=== PATIENT | male | born 1940 | race Caucasian/White ===

== ENCOUNTER → 2023-06-05 12:54 | Outpatient (REF) | payer MEDICARE, OTHER, SELFPAY | LOC: DHCBS MAIN 12:54 | PROVIDERS: ATTENDING PHYSICIAN Internal Medicine Cardiovascular Disease; FAMILY PHYSICIAN Internal Medicine | DX: Z95.2 Presence of prosthetic heart valve (principal) | CPT/HCPCS: 93306 ==

== ENCOUNTER → 2023-09-19 08:20 | Outpatient (REF) | payer MEDICARE, OTHER, SELFPAY | LOC: DHCBC/DCA 08:20 | PROVIDERS: ATTENDING PHYSICIAN Internal Medicine Cardiovascular Disease; FAMILY PHYSICIAN Internal Medicine | DX: I25.10 Atherosclerotic heart disease of native coronary artery without angina pectoris (principal) | CPT/HCPCS: 78452; 93017; A9500 ==

== ENCOUNTER → 2023-12-10 10:56 | Outpatient (REF) | payer MEDICARE, OTHER, SELFPAY ==
[2023-12-10 11:44] LABS: % Basophils 1.4 % (0-2); % Eosinophils 4.7 % (0-6); % Immature Granulocytes 0.3 % (0-0.5); % Lymphocytes 13.2 % (20.5-51.1); % Monocytes 9.7 % (1.7-9.3); % Neutrophils 70.7 % (42.2-75.2); Absolute Basophils 0.1 10^3/uL (0-0.2); Absolute Eosinophils 0.3 10^3/uL (0-0.7); Absolute Lymphocytes 0.9 10^3/uL (1.2-3.4); Absolute Monocytes 0.6 10^3/uL (0.1-0.6); Absolute Neutrophils 4.7 10^3/uL (1.4-6.5); Hematocrit 38.8 % (39.0-52.0); Hemoglobin 13.9 g/dL (13.0-18.0); Mean Corp Hgb Conc. 35.8 g/dL (33.0-37.0); Mean Corpuscular Hgb 34.2 pg (27.0-31.0); Mean Corpuscular Volume 95.6 fL (80.0-94.0); Nucleated Red Blood Cells % 0 % (-); Platelet Count 178 10^3/uL (130-400); Red Blood Cell Count 4.06 10^6/uL (4.70-6.10); Red Cell Dist. Width 12.9 % (11.5-14.5); White Blood Cell Count 6.6 10^3/uL (4.8-10.8)
[2023-12-10 12:51] LABS: ALT (SGPT) 33 U/L (0-50); AST (SGOT) 46 U/L (17-59); Albumin 4.1 g/dl (3.5-5.0); Alkaline Phosphatase 39 U/L (38-126); Blood Urea Nitrogen 21 mg/dl (9-20); Calcium 9.1 mg/dl (8.4-10.2); Carbon Dioxide 25 mmol/L (22-30); Chloride 97 mmol/L (98-107); Glucose 111 mg/dl (70-99); Potassium 4.8 mmol/L (3.5-5.1); Sodium 132 mmol/L (135-145); Total Bilirubin 0.7 mg/dl (0.2-1.3); Total Protein 6.2 g/dl (6.3-8.2); eGFR > 60.00
== END ==
LOC: REG 10:56
PROVIDERS: ATTENDING PHYSICIAN Internal Medicine Interventional Cardiology; FAMILY PHYSICIAN Internal Medicine; REFERRING PHYSICIAN Internal Medicine Cardiovascular Disease
DX: I25.10 Atherosclerotic heart disease of native coronary artery without angina pectoris (principal); I10 Essential (primary) hypertension; E78.5 Hyperlipidemia, unspecified
CPT/HCPCS: 36415; 80053; 85025

== ENCOUNTER → 2023-12-12 07:09 | Outpatient (REF) | payer MEDICARE, OTHER, SELFPAY | LOC: HWRCS 07:09 | PROVIDERS: ATTENDING PHYSICIAN Nurse Practitioner; FAMILY PHYSICIAN Internal Medicine | DX: R06.02 Shortness of breath (principal); R07.89 Other chest pain | CPT/HCPCS: 93306 ==

== ENCOUNTER 2023-12-14 06:13 | Day surgery (SDC) | payer MEDICARE, OTHER, SELFPAY ==
[2023-12-14] VITALS (10 sets, daily range): BP systolic 140–169; BP diastolic 72–84; BMI 24.3
[2023-12-14] MEDS: NSS 230 ML IV (07:06)
[2023-12-14] MEDS: LOW STRENGTH ASPIRIN 324 MG PO (07:13)
--- NOTE | 2023-12-14 09:39 | ITS.CL.CATH ---
[facility] - Catheterization
Cardiac Catheterization
Procedure Report:
RIGHT AND LEFT HEART CATHETERIZATION
Date of Procedure: December 14, 2023
Referring: Dr. Lyssa Dobson
PROCEDURES:
1. Coronary angiography
2. Selective saphenous vein graft and ALYSON angiography
3. Right heart catheterization
INDICATION: This is an 83-year-old gentleman who underwent coronary artery bypass grafting 5 vessels in June 2004 for treatment of significant triple-vessel coronary artery disease involving the left main, LAD, and circumflex. His bypass surgery
PENA-LAD, SVG-D2, SVG-OM, WILLIAM-first diagonal, and free radial graft to ramus intermedius. His last catheterization in October 2014 was performed prior to aortic valve replacement with a 29 mm bovine bioprosthetic valve. At the time of his
catheterization in 2014, the left main was found to be 100% occluded. The saphenous vein graft-OM and WILLIAM-first diagonal were noted to be 100% occluded
ACCESS: Right common femoral artery and right common femoral vein using ultrasound guidance
CORONARY ANGIOGRAPHY
Dominance: Right
LEFT MAIN: 100% occluded
LEFT ANTERIOR DESCENDING: The left main is 100% occluded. The LAD fills via a widely patent ALYSON graft which is anastomosed to the mid-distal vessel. The proximal LAD is 100% occluded and the PENA graft fills retrograde to the mid LAD just beyond
the second diagonal branch and antegrade to the apical vessel.
RAMUS: The left main is 100% occluded with the ramus intermedius filling via a widely patent free radial graft as described below
CIRCUMFLEX: The left main is 100% occluded.
RIGHT CORONARY ARTERY: The RCA is a dominant vessel with mild irregularities. The PDA is patent with mild irregularities.
GRAFT ANGIOGRAPHY:
1. PENA-LAD: The PENA graft to the mid-distal LAD is widely patent with anterograde and retrograde filling of the LAD. The LAD fills retrograde to the mid vessel just beyond the second diagonal branch and antegrade to the apex
2. SVG-D2: There is a degenerative saphenous vein anastomosed to a bifurcating diagonal branch which is patent and angiographically stable.
3. Free radial-Ramus: The free radial graft to a small caliber ramus intermedius is widely patent. The ramus intermedius is a very small caliber vessel that supplies a sizable vascular territory. The free radial graft is anastomosed in the
midportion of the ramus intermedius and there is antegrade and retrograde filling proximal and distal to the anastomosis
4. WILLIAM-D1: Known to be 100% occluded from catheterization 10/2014. Nonselective angiography demonstrates small and atretic WILLIAM graft
5. SVG-OM: Known to be 100% occluded from catheterization 10/2014
HEMODYNAMICS (mmHg) : Right heart catheterization was performed when the patient began asking about his significant shortness of breath at the conclusion of the diagnostic angiogram. He states that his shortness of breath has been worse
AO (s/d, m) : 132/64, 90
RA (m) : 9
RV (s/d) : 31/6, 9
PA (s/d,m) : 27/12, 17
PCWP (m) : 14
Estimated [place] Cardiac Output: 5.2 L/min and Cardiac Index: 2.7 L/min/M-2
Systemic vascular resistance: 15.6 Wood units or 1246 [id number]-puq-ae(-5)
Pulmonary vascular resistance: 0.6 Wood units or 46 vdpkb-lul-eu(-5)
RADIATION SUMMARY: Fluoro Time (min): 11.8, Dose (mGy): 650, DAP (Gy.cm2) : 54
Closure Device: 6 [place] Angio-Seal RFA
CONCLUSION
1. Stable coronary anatomy with nonobstructive coronary disease in the right coronary artery, patent PENA-LAD, SVG-D2, and free radial-ramus.
2. Compensated left ventricular filling pressures
3. Ventriculography was not performed, however, the mean aortic valve gradient across his 29 mm bovine bioprosthetic valve by echocardiogram from 12/12/2023 was 26 mmHg
RECOMMENDATIONS
1. Continued medical management
2. Isosorbide mononitrate was added to current medical regimen and attempt to improve anginal symptoms
Copy to: Dr. Lyssa Dobson
[2023-12-14] MEDS: NSS 345 IV (11:19)
== END 2023-12-14 12:50 | disposition home or self-care (01) ==
LOC: CATH 06:13
PROVIDERS: ATTENDING PHYSICIAN Internal Medicine Interventional Cardiology; FAMILY PHYSICIAN Internal Medicine; OTHER PHYSICIAN Internal Medicine Cardiovascular Disease
DX: I25.10 Atherosclerotic heart disease of native coronary artery without angina pectoris (principal); R07.89 Other chest pain; I25.82 Chronic total occlusion of coronary artery; Z95.1 Presence of aortocoronary bypass graft; Z95.3 Presence of xenogenic heart valve; I10 Essential (primary) hypertension; E78.5 Hyperlipidemia, unspecified; G47.33 Obstructive sleep apnea (adult) (pediatric); K21.9 Gastro-esophageal reflux disease without esophagitis; Z87.891 Personal history of nicotine dependence; Z79.82 Long term (current) use of aspirin
CPT/HCPCS: 93457; C1760; C1894; Q9967

== ENCOUNTER → 2024-01-24 08:00 | Outpatient (REF) | payer MEDICARE, OTHER, SELFPAY ==
[2024-01-24 10:59] LABS: HDL Cholesterol 60 mg/dl; LDL Cholesterol, Calculated 73 mg/dl; Total Cholesterol 143 mg/dl (50-199); Triglyceride 50 mg/dl (10-149); Very Low Density Lipoprotein 10 mg/dl (0-30)
[2024-01-24 11:25] LABS: TSH 3.54 uIU/ml (0.47-4.68)
== END ==
LOC: REG 08:00
PROVIDERS: ATTENDING PHYSICIAN Internal Medicine Cardiovascular Disease; FAMILY PHYSICIAN Internal Medicine
DX: I25.10 Atherosclerotic heart disease of native coronary artery without angina pectoris (principal); I10 Essential (primary) hypertension; I71.21 Aneurysm of the ascending aorta, without rupture; I65.22 Occlusion and stenosis of left carotid artery; G47.33 Obstructive sleep apnea (adult) (pediatric); Z95.2 Presence of prosthetic heart valve; M48.061 Spinal stenosis, lumbar region without neurogenic claudication; N43.3 Hydrocele, unspecified; Z00.00 Encounter for general adult medical examination without abnormal findings
CPT/HCPCS: 36415; 80061; 84443

== ENCOUNTER 2024-03-24 16:30 | Day surgery (SDC) | payer MEDICARE, OTHER, SELFPAY ==
[2024-03-24 15:50] VITALS: BP 150/105
--- NOTE | 2024-03-24 16:03 | ED.GENMED ---
History of Present Illness
General
Chief Complaint: Esophageal Problem
Time Seen by Provider: 03/24/24 15:55
History of Present Illness
History of Present Illness:
Patient is a 83-year-old man who recently had an EGD with dilation completed this morning presenting to the emergency department with food bolus impaction. Patient states that around 2 PM he ate chicken shortly after his procedure when he felt as
if he got stuck in the middle of his chest. Normally he drinks water which passes this however he drank water in the water immediately came back up. He is having some difficulty with his secretions but is able to keep some of it down. Patient's
states that his voice sounds more raspy. Patient otherwise has no complaints.
Past History
Past History
ED Past Medical History: CAD, HTN and Hypercholesterolemia
ED Past Surgical History: Cardiac (CABG)
Social History
Tobacco: Non-smoker
Alcohol: None
Living: with family
Family History
Family History: CAD; Negative Diabetes, Hypertension, Asthma or Cancer
Phy Exam
Physical Exam
Physical Exam:
GENERAL: Intermittently spitting up saliva, talking in complete sentences otherwise protecting his airway
HEENT: normocephalic, extraocular movements intact, moist oral mucosa
NECK: normal inspection
RESPIRATORY: no respiratory distress, clear to auscultation bilaterally
CARDIOVASCULAR: regular rate and rhythm
ABDOMEN/: soft, non-distended, non-tender to palpation, no rebound or guarding
EXTREMITIES: non-tender, no edema/swelling
NEUROLOGIC: awake and alert, moves all extremities
SKIN: warm
Course
Orders/Labs/Results
Orders:
Orders
03/24/24 16:01
Glucagon [GlucaGen] 1 mg IV NOW STA
Ondansetron Injectable [Zofran] 4 mg IV NOW STA
Vital Signs
Initial and Last Documented VS:
Initial Vital Signs
Temp Pulse Resp BP Pulse Ox
97.9 F 71 18 150/105 100
03/24/24 15:50 03/24/24 15:50 03/24/24 15:50 03/24/24 15:50 03/24/24 15:50
Last Documented Vital Signs
Temp Pulse Resp BP Pulse Ox
97.9 F 71 18 150/105 100
03/24/24 15:50 03/24/24 15:50 03/24/24 15:50 03/24/24 15:50 03/24/24 15:50
MDM/Problems Addressed
Differential Diagnosis Includes:
Patient is a 83-year-old male with with EGD with dilation completed earlier today presenting to the emergency department with food impaction. Vitals are unremarkable and exam does show man who is intermittently spitting up his saliva but otherwise
is protecting his airway. Concern for food impaction. History and exam not consistent with complication from EGD such as esophageal perforation. Will order Zofran and glucagon. Will discuss with GI for scope.
*Critical Care Note
Total Time (30-74mins, 75-104mins- exclusive of procedures): Not Applicable
Update Note
Update Note:
On reevaluation patient still feels a food bolus sensation. Unfortunately he is having more difficulty tolerating his secretions. Discussed with GI who will take patient up to lab.
ED Attending Note
-
Portions of this chart may have been created with voice recognition software.� Occasional wrong word or��sound alike� substitutions may have occurred due to the inherent limitations of voice recognition software.
Discharge Plan
Departure
Patient Disposition: GI LAB
Date of Disposition: 03/24/24
Time of Disposition: 16:43
Presentation/result/management discussed w/ accepting MD/DO: GI
Discharge Problem:
Food impaction of esophagus
Prescriptions:
No Action
finasteride 5 MG tablet
5 mg PO DAILY
atorvastatin 10 MG tablet
10 mg PO DAILY
cholecalciferol (vitamin D3) [Vitamin D3] 1,000 UNIT capsule
5,000 unit PO DAILY
coenzyme Q10 [Co Q-10] 100 MG capsule
100 mg PO DAILY
cyanocobalamin (vitamin B-12) 2,500 MCG lozenge
2,500 mcg PO DAILY
aspirin [Aspir-Low] 81 MG tablet,delayed release (DR/EC)
81 mg PO DAILY
multivitamin 1 EACH tablet
1 ea PO DAILY
acetaminophen 325 MG tablet
650 mg PO Q4HPRN PRN (Reason: pain)
famotidine 20 mg Tablet
20 mg PO DAILY
ferrous sulfate [Iron (ferrous sulfate)] 325 mg (65 mg iron) Tablet
325 mg PO DAILY
metoprolol succinate 25 mg Tablet Extended Release 24 Hr
25 mg PO DAILY
lisinopril 2.5 mg Tablet
2.5 mg PO DAILY
zinc 22 mg Tablet
22 mg PO DAILY
Relax and Sleep 65-65-65 mg Tablet
2 tab PO HS
melatonin 5 mg Tablet
5 mg PO HS PRN (Reason: sleep)
theanine 200 mg Capsule
200 mg PO DAILY
Quercetin Complex 500-250-33 mg Capsule
100 cap PO DAILY
isosorbide mononitrate 30 mg tablet extended release 24 hr
30 mg PO DAILY Qty: 90 3RF
Referrals:
UNKNOWN - PT DOES,NOT KNOW [Family Provider] -
Interventions
Interventions:
*Risk Screen - Suicide Last Done: 03/24/24 15:50
*General Assessment Last Done: 03/24/24 16:13
*Neglect/Abuse Screening Last Done: 03/24/24 15:50
ED- Fall Risk Assessment Last Done: 03/24/24 16:17
*ED COVID-19 Vaccine History Last Done: 03/24/24 16:13
CS-Bugvvv-Fkfbffqqlh Assessment Last Done: 03/24/24 16:15
ED-EENT Assessment Last Done: 03/24/24 16:15
Discharge Date and Time
Print Language: ICELANDIC
[2024-03-24] MEDS: ZOFRAN 4 MG IV (16:10)
[2024-03-24] MEDS: GlucaGen 1 MG IV ×2 (16:10→17:29)
[2024-03-24 17:19] VITALS: BP 147/67
--- NOTE | 2024-03-24 17:43 | CON.GI ---
Addendum entered and electronically signed by Nelly Bell DO 04/01/24 16:31:
Responding to query: Food impaction was NOT caused by endoscopy procedure.
Original Note:
Consultation
-
Date/Time Consultation Requested: 03/24/24
Date/Time Consultation Performed: 03/24/24
Requesting Provider: Dr. Velazquez
Performing Provider: Dr. Bell
Reason for Consultation: Food impaction
Medical History
Chief Complaint / HPI
Chief Complaint: Food impaction
History of Present Illness:
Mg is a 83-year-old male with past medical history of reflux esophagitis, CAD, history of adenomatous colon polyps, hypertension and, AVR presents to the ER with concern for food impaction. He had an endoscopy this morning due to ongoing
dysphagia, found to have a mild intrinsic stenosis dilated to 20 mm. He went home and ate a chicken wing, felt it get stuck and came to the ER for evaluation. Initially, he was tolerating secretions without issue however, observed to be spitting up
multiple times in the ER. He was given zofran and glucagonx1 without improvement. Of note, Patient had an episode of of possible food impaction 01/29/2024-spontaneously resolved after 30 minutes.
He underwent endoscopy in June 2021 which showed LA grade C esophagitis and 93 eosinophils per HPF. At that time he was advised to take pantoprazole 20 mg daily. He had subsequent endoscopy in December 2021 which showed improvement in his
esophagitis, and biopsies at that time did not show evidence of Griffith's esophagus. He reportedly had diarrhea on PPI therapy therefore switched to Pepcid 20 mg twice daily. His last colonoscopy was done in June 2021 as well showing a 6 mm
adenoma, diverticulosis in the sigmoid colon, and a normal tattoo site in the proximal TC.
01/03/2022 EGD, Dr. Zambrano: Z-line irregular, 38 cm from the incisors. Biopsied. Chronic gastritis. Biopsied. Normal duodenal bulb. Bx consistent with gastritis, negative for Griffith's.
--06/27/2021 colonoscopy, Dr. Zambrano: Diverticulosis in the sigmoid colon. A tattoo was seen in the proximal descending colon. The tattoo site appeared normal. One 6 mm polyp in the proximal transverse colon, removed with a cold snare. Resected and
retrieved. The examination was otherwise normal.
--06/09/2021 EGD, Dr. Zambrano: Z-line irregular, 37 cm from the incisors. LA Grade C reflux esophagitis with no bleeding. Biopsied. Mild Schatzki ring. Small hiatal hernia. Chronic gastritis. Biopsied. Normal duodenal bulb. Bx showing 93 eosinophils per
HPF.
--03/24/24 EGD, Dr. Hodgson: One benign-appearing intrinsic mild (non-circumferential scarring) stenosis found at the GE junction. Dilated with an 18-19-20mm balloon dilator to 20 mm. The dilation site was examined and showed complete resolution of
luminal narrowing. LA grade A esophagitis. Upper third of the esophagus was normal, biopsies taken. Normal stomach. Normal duodenum.
Past Medical History
Past Medical History: CAD, GERD, HTN, Hypercholesterolemia and Other (Colon polyps)
Past Surgical History: Cardiac and Orthopedic
Social History
Tobacco: Former Smoker
Alcohol: None
Family History
Family History: Reviewed & Not Pertinent
Allergies / Home Medications
Allergy/AdvReac Type Severity Reaction Status Date / Time
house dust Allergy Intermediate Itching Verified 03/24/24 15:53
Sulfa (Sulfonamide Allergy Intermediate Unknown Verified 03/24/24 15:53
Antibiotics)
enviromental Allergy Intermediate asthma Uncoded 03/24/24 15:53
hay fever Allergy Intermediate Itching Uncoded 03/24/24 15:53
�Medication �Instructions �Recorded
finasteride 5 mg tablet 5 mg PO DAILY 08/04/14
atorvastatin 10 mg tablet 10 mg PO DAILY 10/28/14
cholecalciferol (vitamin D3) 25 5,000 unit PO DAILY 10/29/14
mcg (1,000 unit) capsule (Vitamin
D3)
coenzyme Q10 100 mg capsule (Co 100 mg PO DAILY 10/29/14
Q-10)
cyanocobalamin (vitamin B-12) 2,500 mcg PO DAILY 10/29/14
2,500 mcg sublingual lozenge
aspirin 81 mg tablet,delayed 81 mg PO DAILY 08/15/16
release (Aspir-Low)
acetaminophen 325 mg tablet 650 mg PO Q4HPRN PRN pain 09/17/20
multivitamin 1 ea PO DAILY 09/17/20
famotidine 20 mg tablet 20 mg PO DAILY 12/14/23
ferrous sulfate 325 mg (65 mg 325 mg PO DAILY 12/14/23
iron) tablet (Iron (ferrous
sulfate))
isosorbide mononitrate 30 mg 30 mg PO DAILY #90 tabs 12/14/23
tablet,extended release 24 hr
lisinopril 2.5 mg tablet 2.5 mg PO DAILY 12/14/23
melatonin 5 mg tablet 5 mg PO HS PRN sleep 12/14/23
metoprolol succinate 25 mg 25 mg PO DAILY 12/14/23
tablet,extended release 24 hr
theanine 200 mg capsule 200 mg PO DAILY 12/14/23
valerian-passion 2 tab PO HS 12/14/23
wzkxg-oogevm-ahragt-hops-orange 65
mg-65 mg-65 mg tab (Relax and
Sleep)
vitamin C 500 mg-quercetin 250 100 cap PO DAILY 12/14/23
mg-bioflavonoids, citrus 33 mg
capsule (Quercetin Complex)
zinc 22 mg tablet 22 mg PO DAILY 12/14/23
Review of Systems
-
All other systems: A 12 pt ROS was Negative except as stated above in HPI
Vital Signs
Temp Pulse Resp BP Pulse Ox
97.9 F 70 18 147/67 98
03/24/24 15:50 03/24/24 17:19 03/24/24 15:50 03/24/24 17:19 03/24/24 17:19
Physical Exam
Exam
General: Other (Uncomfortable, spitting up secretions)
GI: Soft, Non Tender, Non Distended and Normal Bowel Sounds
Results
Diagnostic Image Results:
Prior GI Procedures:
EGD:
Colonoscopy:
Assessment / Plan
-
Mg is a 83-year-old male with past medical history of reflux esophagitis, CAD, history of adenomatous colon polyps, hypertension and, AVR presents to the ER with concern for food impaction. Of note, patient had an EGD this morning with
Gokul, found to have a benign intrinsic stenosis at GE junction and was dilated to 20mm. No improvement following 1 dose of glucagon.
A/P:
NPO for urgent EGD today
Risks and benefits of procedure discussed and patient agreeable to proceed.
Data Reviewed
-
Old Records: Reviewed
-
-
Thank you for consultation and allowing me to participate in the patient's care. Please call the supervisor [facility] [employer] GI physician during the after hours with any questions or concerns.
--- NOTE | 2024-03-24 19:37 | W.PN.UPDATE ---
Update Note
Progress Note Update
s/p EGD for food impaction. Copious amounts of food throughout the entire esophagus and airway. Due to concern for aspiration, recommend leaving intubated overnight and admitting to ICU for monitoring. Additionally, 2 esophageal ulcers found at the
GE junction, one ulcer with NBVB injected with epi, bicap and hemostatic clip placed, smaller more superficial vessel just inferior to this with pigmented spot, treated with bicap.
Plan:
Admit to ICU overnight, keep NPO
Empiric coverage for aspiration pneumonia
CXR
PPI gtt
Discussed with Tere.
== END 2024-03-24 19:50 | disposition home or self-care (01) ==
LOC: SDS 16:30
PROVIDERS: ATTENDING PHYSICIAN Internal Medicine Gastroenterology; EMERGENCY PHYSICIAN Student in an Organized Health Care Education/Training Program; FAMILY PHYSICIAN Internal Medicine
DX: K22.2 Esophageal obstruction (principal); K21.00 Gastro-esophageal reflux disease with esophagitis, without bleeding; R13.10 Dysphagia, unspecified
CPT/HCPCS: 43249; 43239; 88305; J1610

== ENCOUNTER 2024-03-24 19:23 | Inpatient (IN) | payer MEDICARE, OTHER, SELFPAY ==
[2024-03-24] VITALS (7 sets, daily range): BP systolic 99–146; BP diastolic 56–88
--- NOTE | 2024-03-24 20:00 | PTCARENOTE ---
Patient received from GI lab, intubated. Commands followed, became restless and agitated. Sedated with fentanyl and propofol. NSR on monitor, afebrile, blood pressure as documented. palpable pulses, no edema. #8 ETT at 25 cm at the lip, vent
settings on AC 14 TV 500 FIO2 50% Peep 5, lungs coarse, pulse ox 97%. [place] sump placed in left nare. Abdomen soft ith hypoactive bowel sounds. Thermister amanda placed. Skin intact. #20 g in RAC flushed and patent. CHG bath given.
[2024-03-24] MEDS: SUBLIMAZE 50 MCG IV ×2 (20:04→21:12)
[2024-03-24] MEDS: SUBLIMAZE 100 IV (20:07)
[2024-03-24] MEDS: PROTONIX 100 IV (20:16)
[2024-03-24 21:05] LABS: Venous Blood Gas B.E. -2.1 mmol/L (-4 to +4); Venous Blood Gas HCO3 24.7 mmol/L (22-27); Venous Blood Gas O2 Sat % 95.8 %; Venous Blood Gas pCO2 49 mmHg (35-48); Venous Blood Gas pH 7.31 (7.32-7.43); Venous Blood Gas pO2 78 mmHg (30-50)
[2024-03-24 21:22] LABS: Blood Urea Nitrogen 22 mg/dl (9-20); Calcium 8.4 mg/dl (8.4-10.2); Carbon Dioxide 24 mmol/L (22-30); Chloride 100 mmol/L (98-107); Glucose 113 mg/dl (70-99); Potassium 4.3 mmol/L (3.5-5.1); Sodium 131 mmol/L (135-145); Triglycerides 72 mg/dl (10-149); eGFR > 60.00
[2024-03-24] MEDS: ZOSYN 100 IV (21:22)
--- NOTE | 2024-03-24 23:50 | HPS.HSE ---
Family Physician
-
Family Physician: Fabian Hobbs
Chief Complaint
-
Choking
History of Present Illness
Patient is an 83y M with PMH significant for ASCVD, esophageal stricture and GERD who presents to ED complaining of coughing / choking since this afternoon. Patient has known esophageal stricture and underwent EGD this AM here at . He had
distal esophageal dilation at that time to 20mm. Patient felt well after the procedure and was discharged to home. states that he was eating lunch around 2 PM when he began to experience difficulty swallowing and started to choke. He
presented to the ED for evaluation where his symptoms continued to increase. Patient was taken to the GI lab where he underwent repeat EGD with removal of a large amount of food from the entire esophagus - up to and including the vocal cords and
pharynx. Following this procedure, it was decided to keep patient intubated overnight given concern for possible recurrent aspiration, airway compromise, etc.
Patient was seen and examined in the ICU.
He was on the ventilator with sedation running, but was able to follow commands appropriately.
Case discussed with his via phone.
Medical History
Past Medical History
Past Medical History: Reports Other
Additional Past Medical History:
ASCVD
Esophageal Stricture / GERD
Anemia of Chronic Disease
OBDULIA
BPH
DDD
Past Surgical History: Reports Other
Additional Past Surgical History:
CABG x 5
BioAVR
Left Carotid Stent
Rotator Cuff
Blepharoplasty
Cataracts
Left Inguinal Hernia
Right Knee Arthroscopy
Social History
Tobacco: Former Smoker (Quit > 10 years ago.)
Alcohol: Occasional
Drug: None
Personal:
Living: With Family
Family History
Family History: Not pertinent
Allergies / Home Medications
Allergies reflects when Allergies were last updated in [facility].
Home Medications with original date entered in [facility]
Allergy/Medication List:
unable to confirm current medication list.
If medication reconciliation has not been performed, why?: Medication List N/A
Review of Systems
-
Unable to obtain full review of systems at this time due to: Patient Intubation
Physical Exam
Vital Signs
Vital Signs
Temp Pulse Resp BP Pulse Ox
98.1 F 72 14 138/74 98
03/24/24 23:48 03/24/24 21:30 03/24/24 21:30 03/24/24 21:00 03/24/24 23:09
Physical Exam
General: Other (83y M sedated / intubated. Moving all extremities spontaneously. Comprehends and follows commands appropriately.)
HEENT: Moist mucous membranes
Respiratory: Clear; No Wheezes, Rales or Rhonchi
Cardiac: S1/S2 and Regular Rhythm; No Murmur
GI: Soft, Non Tender, Non Distended and Normal Bowel Sounds
Musculoskeletal: No Clubbing, No Cyanosis and No Edema
Neuro: Sedated
Laboratory Results
-
03/24/24 20:55
Impression/Plan
-
A/P: Patient is an 83y M with PMH significant fro esophageal stricture and GERD who presents to ED complaining of choking.
Food Impaction
Lower Esophageal Stricture
GERD
- Admit to ICU for further evaluation and treatment.
- Maintain ETT / sedation overnight for airway protection.
- Aspiration precautions.
- Cover with abx for now given likely / suspected aspiration.
- Pulm / CC evaluation and probable extubation in the AM.
- Appreciate GI recommendations.
Esophageal Ulcer
- Two small ulcers seen in the esophagus on today's EGD - one with some bleeding.
- Treated with cautery and single clip for hemostasis.
- Continue PPI infusion per GI.
- Follow H&H and monitor for any evident blood loss, etc.
ASCVD
- Stable. No recent issues. s/p remote CABG x 5
- Continue ASA uninterrupted.
- Hold other CV medications until extubated / able to take POs.
BPH
- Cornelius in place at present.
- Resume finasteride when able to take POs.
- TOV / Cornelius removal prior to discharge.
DVT Prophylaxis: SCDs
Code Status: Full
Will need formal med rec in the AM as patient / unable to confirm medications at this time.
[2024-03-25] VITALS (27 sets, daily range): BP systolic 91–146; BP diastolic 54–76; BMI 24.2
--- NOTE | 2024-03-25 00:21 | PTCARENOTE ---
Patient reassessed, calm, no changes in assessment
[2024-03-25] MEDS: DIPRIVAN 100 IV ×2 (01:13→08:02)
--- NOTE | 2024-03-25 04:00 | PTCARENOTE ---
Patient reassessed, no changes in assessment
[2024-03-25] MEDS: ZOSYN 100 IV ×4 (04:13→22:38)
[2024-03-25] MEDS: PROTONIX 100 IV (04:23)
[2024-03-25 04:28] LABS: Hematocrit 40.8 % (39.0-52.0); Hemoglobin 14.1 g/dL (13.0-18.0); Mean Corp Hgb Conc. 34.6 g/dL (33.0-37.0); Mean Corpuscular Hgb 34.9 pg (27.0-31.0); Mean Platelet Volume 10.1 fL (7.4-10.4); Platelet Count 137 10^3/uL (130-400); Red Blood Cell Count 4.04 10^6/uL (4.70-6.10); Red Cell Dist. Width 13.2 % (11.5-14.5); White Blood Cell Count 13.8 10^3/uL (4.8-10.8)
[2024-03-25 04:53] LABS: Blood Urea Nitrogen 20 mg/dl (9-20); Calcium 8.3 mg/dl (8.4-10.2); Carbon Dioxide 25 mmol/L (22-30); Chloride 100 mmol/L (98-107); Glucose 138 mg/dl (70-99); Potassium 4.5 mmol/L (3.5-5.1); Sodium 134 mmol/L (135-145); eGFR > 60.00
--- NOTE | 2024-03-25 07:39 | W.PN.ANS.POP ---
Anesthesia Post Operative
- Anesthesia Post Op Note
Vital Signs Stable-See Nursing Note: Yes
Airway Patent: Yes
Adequate Pain Control: Yes
Change in Mental Status: No
Current Postoperative Nausea & Vomiting: No
Anesthesia Complications: No
General Anesthetic Recall: No
Unplanned Admission: No
Post Op Hydration Adequate: Yes
--- NOTE | 2024-03-25 07:43 | CON.INTV ---
Consultation
Consultation Request
Date/Time Consultation Requested: 03/25/2024-7:30 AM
Date/Time Consultation Performed: 03/25/2024-7:30 AM
Requesting Provider: Hospitalist
Performing Provider: Dr. Bridges
Reason for Consultation: Ventilator management/critical care management
Medical History
-
Chief Complaint: Abdominal pain
History of Present Illness:
83-year-old male with a history of CAD, GERD, BPH, OBDULIA, and esophageal strictures who underwent EGD 03/25/2019 5 AM with distal esophageal dilation who felt well and was discharged home and returned with complaints of difficulty swallowing and
choking noted to have emergent repeat endoscopy found to have large amount of food in the entire esophagus, aspiration suspected and patient was kept intubated postprocedure-automotive services manager consulted for ventilator/aspiration/critical care management
03/25/2024. Patient is on the ventilator, sedated and review of systems was unobtainable, no significant secretions from endotracheal tube, remains hemodynamically stable.
Past Medical History
Past Medical History: None (CAD/CABG x 5/AVR-bioprosthetic. Anemia of chronic disease. GERD. BPH. DDD. Esophageal stricture status post dilations. Rotator cuff. Left carotid stent. Blepharoplasty. Cataract. Left inguinal hernia. Right
knee arthroplasty.)
Social History
Tobacco: Former Smoker (Quit over 10 years ago)
Alcohol: Occasional
Drug: None
Personal:
Living: With Family
Occupational Exposures: No known asbestos exposure
Environmental Exposures: No known tuberculosis exposure
Family History
Family History: Reviewed & Not Pertinent
Allergies / Home Medications
Allergies
Allergy/AdvReac Type Severity Reaction Status Date / Time
house dust Allergy Itching/nasal Verified 03/24/24 20:01
congestion
pollen extracts Allergy HAYFEVER/ITCHING/NASAL Verified 03/24/24 20:01
CONGESTION
Sulfa (Sulfonamide Allergy childhood-does Verified 03/24/24 20:01
Antibiotics) not know
reaction
enviromental Allergy asthma Uncoded 03/24/24 20:01
Home Medications
�Medication �Instructions �Recorded �Confirmed �Last Taken �Type
finasteride 5 mg tablet 5 mg PO DAILY 08/04/14 12/14/23 12/13/23 07:00 History
atorvastatin 10 mg tablet 10 mg PO DAILY 10/28/14 12/14/23 12/13/23 07:00 History
cholecalciferol (vitamin D3) 25 5,000 unit PO DAILY 10/29/14 12/14/23 12/13/23 07:00 History
mcg (1,000 unit) capsule (Vitamin
D3)
coenzyme Q10 100 mg capsule (Co 100 mg PO DAILY 10/29/14 12/14/23 12/13/23 07:00 History
Q-10)
cyanocobalamin (vitamin B-12) 2,500 mcg PO DAILY 10/29/14 12/14/23 12/14/23 07:00 History
2,500 mcg sublingual lozenge
aspirin 81 mg tablet,delayed 81 mg PO DAILY 08/15/16 12/14/23 12/11/23 07:00 History
release (Aspir-Low)
acetaminophen 325 mg tablet 650 mg PO Q4HPRN PRN pain 09/17/20 12/14/23 09/18/20 History
multivitamin 1 ea PO DAILY 09/17/20 12/14/23 12/13/23 07:00 History
famotidine 20 mg tablet 20 mg PO DAILY 12/14/23 12/14/23 12/13/23 07:00 History
ferrous sulfate 325 mg (65 mg 325 mg PO DAILY 12/14/23 12/14/23 12/13/23 07:00 History
iron) tablet (Iron (ferrous
sulfate))
isosorbide mononitrate 30 mg 30 mg PO DAILY #90 tabs 12/14/23 Unknown Rx
tablet,extended release 24 hr
lisinopril 2.5 mg tablet 2.5 mg PO DAILY 12/14/23 12/14/23 12/13/23 07:00 History
melatonin 5 mg tablet 5 mg PO HS PRN sleep 12/14/23 12/14/23 12/13/23 20:30 History
metoprolol succinate 25 mg 25 mg PO DAILY 12/14/23 12/14/23 12/13/23 07:00 History
tablet,extended release 24 hr
theanine 200 mg capsule 200 mg PO DAILY 12/14/23 12/14/23 12/13/23 07:00 History
valerian-passion 2 tab PO HS 12/14/23 12/14/23 12/13/23 20:30 History
oqnkl-udumqc-shzadc-hops-orange 65
mg-65 mg-65 mg tab (Relax and
Sleep)
vitamin C 500 mg-quercetin 250 100 cap PO DAILY 12/14/23 12/14/23 12/13/23 07:00 History
mg-bioflavonoids, citrus 33 mg
capsule (Quercetin Complex)
zinc 22 mg tablet 22 mg PO DAILY 12/14/23 12/14/23 12/13/23 07:00 History
Review of Systems
-
Unable to Obtain full review of systems at this time due to: Other (Per HPI)
Vitals / Labs / Diagnostic Testing
Vital Signs
Temp Pulse Resp BP Pulse Ox
98.2 F 55 14 114/68 99
03/25/24 04:11 03/25/24 07:00 03/25/24 07:00 03/25/24 07:00 03/25/24 04:00
Lab Data
03/25/24 04:20
03/25/24 04:20
Diagnostic Testing:
Physical Exam
-
Exam:
Well-nourished and well-developed in no apparent distress
HEENT-atraumatic, normocephalic, oral tracheal intubation
Neck-supple, no JVD, no bruit
Heart-regular rate and rhythm-no murmurs, rubs or gallops
Chest-clear to auscultation, few rhonchi
Back-no tenderness
Abdomen-soft, nontender, nondistended, no hepatosplenomegaly
Extremities-no cyanosis, clubbing, edema and good peripheral pulses
Integument-intact, no rashes, lesions or ecchymosis
Neurologically sedated on ventilator, moving extremities, grossly nonfocal
Assessment
-
83-year-old male with a history of CAD, GERD, BPH, OBDULIA, and esophageal strictures who underwent EGD 03/25/2019 5 AM with distal esophageal dilation who felt well and was discharged home and returned with complaints of difficulty swallowing and
choking noted to have emergent repeat endoscopy found to have large amount of food in the entire esophagus, aspiration suspected and patient was kept intubated postprocedure-automotive services manager consulted for ventilator/aspiration/critical care management
03/25/2024.
Ventilator dependence post emergent endoscopy
Intubated 03/24/2024
Extubated 03/25/2024
Food impaction
Lower esophageal stricture
Aspiration pneumonitis suspected
GERD
GI cvqyb-apcbo-faeuoebfhl ulcer status post cautery 03/24/2024
Esophageal ulcer-2 small ulcers seen on the esophagus on repeat endoscopy-1 with bleeding
Leukocytosis
Mild hyponatremia
Hyperglycemia
Conditions present prior to admission:
CAD/CABG x 5/AVR-bioprosthetic.
Anemia of chronic disease.
GERD.
BPH.
DDD.
Esophageal stricture status post dilations.
Pulmonary nodule-5 mm right lower lobe-stable 03/2018 through 07/2021
Former smoker
Rotator cuff. Left carotid stent. Blepharoplasty. Cataract. Left inguinal hernia. Right knee arthroplasty.
Plan
Events and both endoscopy reports were reviewed
Ventilator settings reviewed
Attempt spontaneous breathing trial
Follow ABG
Hope to extubate
Nebulizers if needed-not bronchospastic
VAP prevention protocol
Aspiration prevention
Check cultures
Empiric antibiotics-may not have had significant aspiration and it may have been chemical aspiration-suggest short course of antibiotics
Endoscopies reviewed
GI following-correspondence reviewed
Monitor hemodynamics in light of significant cardiac disease
DVT prophylaxis
GI prophylaxis-on pantoprazole
Nutrition per gastroenterology
Early mobilization
If able to be weaned off the ventilator and remains he medically stable then transfer out of ICU-call pulmonary if respiratory issues arise
Critical care statement: A total of 65 minutes of critical care time was provided for this patient today. This includes management of unstable vital signs, evaluation of the patient at bedside, reviewing the patient's pertinent medical records
including radiographs, microbiology, laboratory evaluations, and discussion with primary team, consultants, pharmacy, nutrition, physical therapy, case management, charge nurse, critical care nursing, and respiratory therapy.
Diagnostic data:
Chest x-ray 03/24/2024-endotracheal tube tip in the trachea above the antionette, no pneumothorax
CT angiography 07/19/2021-mild ectasia of the ascending thoracic aorta, stable small right lower lobe pulmonary nodule consistent with benign etiology-5 mm-unchanged compared to 03/29/2018
Cardiac catheterization 01/02-stable coronary anatomy with nonobstructive coronary disease in the right coronary artery and patent PENA-LAD and other grafts
Echocardiogram 12/12/2023-EF 60-65%, moderate left ventricular hypertrophy, intermediate diastolic function, well-seated number 29 mm bovine bioprosthetic aortic valve, moderate bioprosthetic stenosis
Spirometry 12/21/2014-FEV1 3.89-116%, FVC 5.19-113%. Normal spirometry
Data Reviewed
-
PFT: Report reviewed by me
EKG: Report reviewed by me
Radiology: Image personally visualized and interpreted and Report reviewed by me
CT Scan: Report reviewed by me
Medical Tests (Nuc Med, Echo etc): Report reviewed by me
Labs: Labs reviewed by me
Old Records: Reviewed
Critical Care Time (in minutes): 65
[2024-03-25] MEDS: LOW STRENGTH ASPIRIN 81 MG TUBE (08:02)
--- NOTE | 2024-03-25 09:10 | W.PN.GI.CBS2 ---
Today's Communication / Plan
-
Extubate when appropriate, only advance diet to clears. Recommend completing course of abx for aspiration pneumonia
Assessment / Plan
-
83-year-old male with past medical history of reflux esophagitis, CAD, history of adenomatous colon polyps, hypertension and, AVR admitted to on 03/24 after earlier EGD w/ balloon dilation with Dr. Olivo with food impaction s/p EGD with c/f
aspiration, admitted to ICU for monitoring overnight after the procedure.
#Food impaction
-s/p EGD on 03/24, c/f aspiration
-recommendations from anesthesia to remain intubated overnight, admitted to ICU
-CXR nml
-recommend empiric coverage for aspiration pneumonia
-extubation per ICU-- okay from GI perspective when deemed appropriate
-recommend removal of NGT
-would only advance to clears when able to take PO
#Esophageal ulcers
-2x esophageal ulcers @ GE junction; 1 with NBVB treated with epi, bicap and hemostatic clip placed, additional smaller ulcer just inferior to this with pigmented spot, treated with bicap
-currently on PPI gtt, okay to switch to IV PPI
-d/c on PO PPI BID x8 weeks
-recommend repeat EGD in [address] Hodgson
#Dysphagia
-EGD on 03/[address] Hodgson with mild benign intrinsic stenosis at GE junction dilated to 20 mm, suspect his moderately tortuous esophagus is contributing as well as likely underlying esophageal dysmotility
-recommend outpatient esophageal manometry
Subjective
Subjective
Date of Service: March 25, 2024
Patient seen in follow-up this morning, remains intubated. Has NGT to suction, unclear why this was placed? He awake but somewhat sedated, agitated overnight.
Objective
Data Reviewed
Laboratory Data:
Laboratory Results
03/25/24 04:20
03/25/24 04:20
Laboratory Results
Magnesium 2.0 mg/dl (1.6-2.3) 03/24/24 20:55
Vital Signs and I&O:
Vital Signs
Temp Pulse Resp BP Pulse Ox
98.2 F 11 59 114/68 100
03/25/24 08:00 03/25/24 09:00 03/25/24 09:00 03/25/24 07:00 03/25/24 09:00
I&O
03/24/24 03/25/24 03/26/24
06:59 06:59 06:59
Intake Total 504.2 / 528.3 94.1 / 94.1
Output Total 725 / 825 275 / 275
Balance -220.8 / -296.7 -180.9 / -180.9
Physical Exam
Physical Exam
HEENT: Other (Intubated, +NGT)
GI: Soft, Non Distended and Non Tender
Neuro: Other (Awake but somewhwat sedated, unable to follow all commands)
--- NOTE | 2024-03-25 09:34 | PTCARENOTE ---
Received pt this am intubated, sedated on vent. Pt easily awakens on prop and fent as charted. When doing amanda care, noted purulent discharge at meatus as well as cloudy urine. Discussed during rounds and ua sent as ordered. Sedation stopped
and pt placed on wean. Otherwise please see worklist.
[2024-03-25 11:03] LABS: B.E. 0.7 mmol/L; HCO3 25.4 mmol/L (21-28); O2 Saturation % 96.8 % (94-98); PCO2 40 mmHg (35-48); PO2 111 mmHg (83-108); pH 7.41 (7.35-7.45)
[2024-03-25 11:21] LABS: Urine Albumin Trace (Neg - Trace); Urine Bilirubin Negative (Negative); Urine Character Very Cloudy (Clear); Urine Glucose Negative (Negative); Urine Ketone Negative (Negative); Urine Leukocyte Trace (Negative); Urine Nitrite Negative (Negative); Urine Occult Blood 3+ (Negative); Urine Urobilinogen Negative (Neg - 1+)
[2024-03-25 11:25] LABS: Urine Color Yellow
[2024-03-25 11:47] LABS: Urine Amorphous Seen; Urine Squamous Cell 0-2 /LPF (Few); Urine White Cell 0-2 /HPF (0-5)
--- NOTE | 2024-03-25 13:02 | CM ---
CM following re: discharge planning.
Reviewed pt's chart, met with pt.
Pt is an 83 year old male, admitted with primary dx of Ventilator dependence post emergent endoscopy. Intubated 03/24/2024. Extubated 03/25/2024.
Pt reports he lives with spouse 2SHG, 1 step to enter, has supportive son. 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 No DME, VN or SNF history. Pt reports he does a lot of hiking.
PCP: Fabian Hobbs
Pharmacy: [facility]
D/C plan: home with anticipated no needs. Spouse to transport at discharge.
CM will follow with discharge plan updates as hospitalization progresses
--- NOTE | 2024-03-25 13:59 | PTCARENOTE ---
Pt was extubated before noon to room air. VSS. Only c/o feeling dizzy and drowsy. Was able to stand with min assist and step to chair. Cornelius removed after extubation prior to out of bed. Urinal at bedside. Pt tolerated ice chips and water.
Clear tray ordered. called and updated. Pt otherwise without complaint.
--- NOTE | 2024-03-25 14:28 | W.PN.HOSP.TC ---
Today's Communication/Plan
-
Stable for telemetry
Assessment / Plan
Assessment / Plan
83y M with PMH significant for ASCVD, esophageal stricture and GERD who presents to ED complaining of coughing / choking since this afternoon. Patient has known esophageal stricture and underwent EGD this AM here at . He had distal esophageal
dilation at that time to 20mm. Patient felt well after the procedure and was discharged to home. states that he was eating lunch around 2 PM when he began to experience difficulty swallowing and started to choke. He presented to the ED for
evaluation where his symptoms continued to increase. Patient was taken to the GI lab where he underwent repeat EGD with removal of a large amount of food from the entire esophagus - up to and including the vocal cords and pharynx. Following this
procedure, it was decided to keep patient intubated overnight given concern for possible recurrent aspiration, airway compromise, etc.
Food Impaction
Lower Esophageal Stricture
GERD
- Appreciate director nicu and GI input
- Status post urgent EGD 03/24 with large amount of food in oropharynx and around vocal cords, obscuring airway. Food removed
- Extubated 03/25, tolerating clear liquid diet
- Continue IV Zosyn for suspected aspiration
Esophageal Ulcer
- Two small ulcers seen in the esophagus on 03/24 EGD - one with some bleeding.
- Treated with cautery and single clip for hemostasis.
- Continue PPI infusion per GI.
- Follow H&H and monitor for any evident blood loss, etc.
ASCVD
- Stable. No recent issues. s/p remote CABG x 5
- Continue ASA uninterrupted.
BPH
- Cornelius in place at present.
- Resume finasteride when able to take POs.
- TOV / Cornelius removal prior to discharge.
DVT Prophylaxis: SCDs secondary to small bleeding ulcer
Code Status: Full
Total time spent to see the patient on the floor, examine the patient, review data and lab results, discuss treatment plan with patient, nursing staff around 51 minutes.
Physical Exam
General: No acute distress
HEENT: Normocephalic, Atraumatic, EOMI, MMM
Respiratory: Clear to Auscultation bilaterally
Cardiac: Normal S1/S2, Regular Rate and Rhythm
GI: Soft, Nontender, Nondistended, Normal Bowel Sounds
Extremities: No Clubbing, Cyanosis, or Edema
Neuro: Nonfocal/Grossly Intact
Psych: Calm, Cooperative
Derm: No Visible lesions
Anticipated Discharge: 24 - 48 hours
Subjective/Interval History
-
Date of Service: March 25, 2024
Patient extubated today. Denies chest pain, denies shortness of breath. No nausea, no vomiting. No fever.
Objective Data
-
Labs:
Laboratory Results
03/24/24 03/25/24
20:55 04:20
WBC 13.8 H
Hgb 14.1
Hct 40.8
Plt Count 137
Sodium 131 L 134 L
Potassium 4.3 4.5
Chloride 100 100
Carbon Dioxide 24 25
BUN 22 H 20
Creatinine 0.5 L 0.5 L
Glucose 113 H 138 H
Calcium 8.4 8.3 L
Vital Signs:
Vital Signs
Temp Pulse Resp BP Pulse Ox
98.2 F 11 59 114/68 100
03/25/24 08:00 03/25/24 09:00 03/25/24 09:00 03/25/24 07:00 03/25/24 09:00
I&O
03/24/24 03/25/24 03/26/24
06:59 06:59 06:59
Intake Total 504.2 / 528.3 94.1 / 94.1
Output Total 725 / 825 275 / 275
Balance -220.8 / -296.7 -180.9 / -180.9
[2024-03-25] MEDS: PROTONIX IV (16:03)
[2024-03-25] MEDS: NSS (PRESERVATIVE FREE) 10 ML IV (20:31)
[2024-03-25] MEDS: PROTONIX IV 40 MG IV (20:31)
[2024-03-26 03:41] VITALS: BP 144/76
[2024-03-26] MEDS: ZOSYN 100 IV ×3 (04:08→15:18)
[2024-03-26 06:00] VITALS: BMI 23.6
[2024-03-26 06:47] VITALS: BP 114/70
[2024-03-26 08:04] LABS: Hematocrit 38.7 % (39.0-52.0); Hemoglobin 13.6 g/dL (13.0-18.0); Mean Corp Hgb Conc. 35.1 g/dL (33.0-37.0); Mean Corpuscular Hgb 35.3 pg (27.0-31.0); Mean Corpuscular Volume 100.5 fL (80.0-94.0); Mean Platelet Volume 10.2 fL (7.4-10.4); Platelet Count 135 10^3/uL (130-400); Red Blood Cell Count 3.85 10^6/uL (4.70-6.10); Red Cell Dist. Width 13.6 % (11.5-14.5); White Blood Cell Count 8.2 10^3/uL (4.8-10.8)
--- NOTE | 2024-03-26 08:25 | W.PN.GI.CBS2 ---
Today's Communication / Plan
-
PPI PO BID. Full liquids. PO abx on d/c to complete course. Okay for d/c today from GI perspective. GI will sign off, please call with questions
Assessment / Plan
-
83-year-old male with past medical history of reflux esophagitis, CAD, history of adenomatous colon polyps, hypertension and, AVR admitted to on 03/24 after earlier EGD w/ balloon dilation with Dr. Olivo with food impaction s/p EGD with c/f
aspiration, admitted to ICU for monitoring overnight after the procedure. He is now extubated and stable without any evidence of respiratory distress
#Food impaction
-s/p EGD on 03/24, c/f aspiration
-recommendations from anesthesia to remain intubated overnight, admitted to ICU
-CXR nml
-recommend empiric coverage for aspiration pneumonia--d/c on PO abx to finish course
-on clear liquids, will advance to full liquids. Discussed with patient he can advance to soft foods tomorrow for a few days, after which he needs to be cautious, cutting food into small pieces, sips of water inbetween bites
#Esophageal ulcers
-2x esophageal ulcers @ GE junction; 1 with NBVB treated with epi, bicap and hemostatic clip placed, additional smaller ulcer just inferior to this with pigmented spot, treated with bicap
-d/c on PPI BID x 8 weeks
-recommend repeat EGD in [address] Hodgson
#Dysphagia
-EGD on 03/[address] Hodgson with mild benign intrinsic stenosis at GE junction dilated to 20 mm, suspect his moderately tortuous esophagus is contributing as well as likely underlying esophageal dysmotility
-recommend outpatient esophageal manometry
Subjective
Subjective
Date of Service: March 26, 2024
Patient seen in follow-up. He is extubated, feels well, offers no complaints.
Objective
Data Reviewed
Laboratory Data:
Laboratory Results
03/26/24 07:24
03/25/24 04:20
Laboratory Results
Magnesium 2.0 mg/dl (1.6-2.3) 03/24/24 20:55
Vital Signs and I&O:
Vital Signs
Temp Pulse Resp BP Pulse Ox
98.5 F 60 18 114/70 96
03/26/24 06:47 03/26/24 06:47 03/26/24 06:47 03/26/24 06:47 03/26/24 06:47
I&O
03/25/24 03/26/24 03/27/24
06:59 06:59 06:59
Intake Total 504.2 / 528.3 1374.1 / 1374.1
Output Total 725 / 825 1200 / 1200
Balance -220.8 / -296.7 174.1 / 174.1
Physical Exam
Physical Exam
GI: Soft, Non Distended, Non Tender and Normal Bowel Sounds
--- NOTE | 2024-03-26 09:22 | W.PN.HOSP.TC ---
Addendum entered and electronically signed by Jeramy Plascencia MD 03/27/24 14:00:
Patient also had hyponatremia, that was mild and improved.
Original Note:
Today's Communication/Plan
-
Cleared by GI for discharge today
Assessment / Plan
Assessment / Plan
83y M with PMH significant for ASCVD, esophageal stricture and GERD who presents to ED complaining of coughing / choking since this afternoon. Patient has known esophageal stricture and underwent EGD this AM here at . He had distal esophageal
dilation at that time to 20mm. Patient felt well after the procedure and was discharged to home. states that he was eating lunch around 2 PM when he began to experience difficulty swallowing and started to choke. He presented to the ED for
evaluation where his symptoms continued to increase. Patient was taken to the GI lab where he underwent repeat EGD with removal of a large amount of food from the entire esophagus - up to and including the vocal cords and pharynx. Following this
procedure, it was decided to keep patient intubated overnight given concern for possible recurrent aspiration, airway compromise, etc.
Food Impaction
Lower Esophageal Stricture
GERD
- Appreciate frame aligner and GI input
- Status post urgent EGD 03/24 with large amount of food in oropharynx and around vocal cords, obscuring airway. Food removed
- Extubated 03/25, tolerating clear liquid diet, advance to full liquids 03/26
- Currently on IV Zosyn to cover for possible aspiration, will discontinue, he does not need any antibiotics upon discharge
- Cleared by GI for discharge on full liquid diet, okay for soft foods on 03/27�continue for 3 days, then advance to chopped foods
- Follow-up with GI in the office in 2-3 weeks
Esophageal Ulcer
- Two small ulcers seen in the esophagus on 03/24 EGD - one with some bleeding.
- Treated with cautery and single clip for hemostasis.
- Currently on IV Protonix, GI recommends Protonix 40 mg p.o. twice daily for 8 weeks, then repeat endoscopy
- Follow H&H and monitor for any evident blood loss, etc.
ASCVD
- Stable. No recent issues. s/p remote CABG x 5
- Continue ASA uninterrupted.
BPH
- Cornelius in place at present.
- Resume finasteride when able to take POs.
- TOV / Cornelius removal prior to discharge.
DVT Prophylaxis: SCDs secondary to small bleeding ulcer
Code Status: Full
Physical Exam
General: No acute distress
HEENT: Normocephalic, Atraumatic, EOMI, MMM
Respiratory: Clear to Auscultation bilaterally
Cardiac: Normal S1/S2, Regular Rate and Rhythm
GI: Soft, Nontender, Nondistended, Normal Bowel Sounds
Extremities: No Clubbing, Cyanosis, or Edema
Neuro: Nonfocal/Grossly Intact
Psych: Calm, Cooperative
Derm: No Visible lesions
Anticipated Discharge: Today
Subjective/Interval History
-
Date of Service: March 26, 2024
Patient complains of throat congestion. He is tolerating his clear liquid diet. No fever, no vomiting.
Objective Data
-
Labs:
Laboratory Results
03/26/24
07:24
WBC 8.2
Hgb 13.6
Hct 38.7 L
Plt Count 135
Vital Signs:
Vital Signs
Temp Pulse Resp BP Pulse Ox
98.5 F 60 18 114/70 96
03/26/24 06:47 03/26/24 06:47 03/26/24 06:47 03/26/24 06:47 03/26/24 06:47
I&O
03/25/24 03/26/24 03/27/24
06:59 06:59 06:59
Intake Total 504.2 / 528.3 1374.1 / 1374.1
Output Total 725 / 825 1200 / 1200
Balance -220.8 / -296.7 174.1 / 174.1
[2024-03-26] MEDS: LIPITOR 10 MG PO (09:25)
[2024-03-26] MEDS: PEPCID 20 MG PO (09:26)
[2024-03-26] MEDS: ASPIR LOW (ENTERIC COATED) 81 MG PO (09:26)
[2024-03-26] MEDS: PROSCAR 5 MG PO (09:26)
[2024-03-26] MEDS: NSS (PRESERVATIVE FREE) 10 ML IV (09:27)
[2024-03-26] MEDS: TOPROL XL 25 MG PO (09:27)
[2024-03-26] MEDS: PROTONIX IV 40 MG IV (09:28)
--- NOTE | 2024-03-26 10:35 | PN.CDI ---
CDI
- -
CDI:
Physician Documentation Request
Admit Date: 03/24/24 19:23
Dear Doctor Arabella,
Patient admitted for food impaction.
H&P: ' Patient has known esophageal stricture and underwent EGD this AM here at . He had distal esophageal dilation at that time to 20mm...Patient was taken to the GI lab where he underwent repeat EGD with removal of a large amount of food from
the entire esophagus - up to and including the vocal cords and pharynx.'
Please clarify the following:
Food impaction is a complication of the surgery
Food impaction is unexpected but is NOT a complication of the surgery
Food impaction is an expected occurrence and is not a complication of surgery
Food impaction is inherent to/unavoidable during the surgery and is not a complication
Other
Use of terms such as suspected, likely, concern for, or probable (associated with a specific diagnosis that is being evaluated, monitored, or treated as if it exists) are acceptable and can be coded in the inpatient setting, when documented at the
time of discharge.
Thank you,
Odilia Fisher RN, BSN
CDI Specialist
Available via [place] text
Please use your independent medical judgment in providing your response.
[2024-03-26 13:01] VITALS: BP 133/77
--- NOTE | 2024-03-26 16:04 | W.DCSUMMARY ---
Discharge Summary
Discharge Data
Date of Admission: 03/24/24
Date of Discharge: 03/26/24
-
Pending Results: No
Hospital Course
Discharge diagnosis:
Food impaction
Lower esophageal stricture
Dysphagia
Gastroesophageal reflux disease
Esophageal ulcer
Coronary artery disease
Benign prostatic hypertrophy
Consults: [employer], GI
03/24/24
EGD
Impression: - Large amounts of food found in oropharynx and around
vocal cords, obscuring airw.
- Tortuous esophagus.
- Food in the esophagus. Removal was successful.
- Hemorrhagic appearing, longitudinally marked mucosa
in the esophagus.
- Esophageal ulcer with stigmata of recent bleeding.
Injected. Treated with bipolar cautery. Clip (MR
conditional) was placed. 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.
- Esophageal ulcer with no stigmata of recent
bleeding. Treated with bipolar cautery.
- A large amount of food (residue) in the stomach.
- Erythematous mucosa in the gastric body and antrum.
- Normal first portion of the duodenum.
- Retained food in the duodenum.
Recommendation: - Admit the patient to ICU for a suspected
complication (aspiration).
-Recommend he remain intubated overnight
-Empiric antibiotics to cover for aspiration pneumonia
-Check CXR
-PPI gtt given high risk esophageal ulcer, would d/c
on PPI BID
-NPO
-Repeat EGD in 8 weeks to assess for healing of
esopahgeal ulcer, suspect 2/2 earlier dilation
followed by dietary indiscretion and food bolus
sitting at [facility]
-Recommend outpatient esophageal manometry
Hospital course:
83-year-old male with a past medical history of coronary artery disease, esophagitis, and esophageal stricture with dysphagia status post dilatation on 03/24/[address] Hodgson was admitted for food impaction following his procedure after eating
regular solids. Patient was seen in conjunction with GI and taken to endoscopy urgently where large amounts of food were found in the oropharynx around the vocal cords, obscuring the airway. The food was removed. Patient was intubated for the
procedure, and remained intubated overnight. He was monitored in the ICU. He was extubated the following day, and transferred out.
Patient was also found to have esophageal ulcers with stigmata of recent bleeding on his endoscopy. This was treated with bipolar cautery. He received IV Protonix in the hospital. GI recommends discharge on oral Protonix twice a day for 8 weeks,
then repeat endoscopy with his usual GI doctor at that time.
Patient tolerated a clear liquid diet, and was advanced to a full liquid diet. He did not have any shortness of breath or cough. He did receive IV Zosyn while in the hospital to cover for aspiration, but does not need antibiotics upon discharge.
He has been cleared by GI for discharge. He needs to continue a full liquid diet on the day of discharge, 03/26. On 03/27, he may eat a soft diet, which he should continue for 3 days. On 03/30, he may eat a chopped diet. He has been instructed to
chew his food slowly and completely. He is medically stable for discharge. He needs to follow-up with his primary care doctor in 1 week, as well as GI in the office as scheduled.
Disposition: Home self-care
Discharge planning: Required 40 minutes
Discharge Plan
-
Patient Disposition: Home (Routine Discharge)
Discharge Diagnosis/Procedures: Food impaction, low esophageal stricture, esophageal ulcers, dysphagia
Condition: Good
Diet: Other diet
Additional Diets: Full liquid diet today, soft foods starting tomorrow for 3 days, then chopped food
Activity: As tolerated
Driving Restrictions: As prior to admission
Activity Restrictions/Additional Instructions:
It is very important that you adhere to a full liquid diet today, 03/26/2024.
You may start a soft diet on 03/27/2024ontinue for 3 days.
If tolerating your soft diet, you may start a chopped diet on 03/30/2024e cautious and chew your food slowly and completely.
You have esophageal ulcers. GI recommends taking pantoprazole twice a day for 8 weeks, you will need a repeat endoscopy in 8 weeks with your usual GI doctor.
Follow-up with your primary care doctor in 1 week, and GI in the office in 2-3 weeks.
Instructions: Full liquid diet, Soft diet
Referrals:
Fabian Hobbs MD [Family Provider] - in one week
Kalpana Bee PA-C [Specified Professional Personl] - 04/24/24 11:30 am
Prescriptions:
New
pantoprazole 40 mg tablet,delayed release (DR/EC)
40 mg PO BID Qty: 60 0RF
Continued
finasteride 5 MG tablet
5 mg PO DAILY
atorvastatin 10 MG tablet
40 mg PO DAILY
coenzyme Q10 [Co Q-10] 100 MG capsule
100 mg PO DAILY
cyanocobalamin (vitamin B-12) 2,500 MCG lozenge
2,500 mcg PO DAILY
aspirin [Aspir-Low] 81 MG tablet,delayed release (DR/EC)
81 mg PO DAILY
multivitamin 1 EACH tablet
1 ea PO DAILY
acetaminophen 325 MG tablet
650 mg PO Q4HPRN PRN (Reason: pain)
famotidine 20 mg Tablet
20 mg PO BID
ferrous sulfate [Iron (ferrous sulfate)] 325 mg (65 mg iron) Tablet
325 mg PO DAILY
metoprolol succinate 25 mg Tablet Extended Release 24 Hr
25 mg PO DAILY
lisinopril 2.5 mg Tablet
2.5 mg PO DAILY
zinc 22 mg Tablet
22 mg PO DAILY
Relax and Sleep 65-65-65 mg Tablet
2 tab PO HS
theanine 200 mg Capsule
200 mg PO DAILY
Quercetin Complex 500-250-33 mg Capsule
100 cap PO DAILY
isosorbide mononitrate 30 mg tablet extended release 24 hr
30 mg PO DAILY Qty: 90 3RF
Discharge Orders:
Discharge Patient (As Directed); Ordered 03/26/24
Ordered By: Jeramy Plascencia
Discharge Date and Time
Discharge Date/Time: 03/26/24 17:07
Print Language: NAURUAN
[2024-03-26 16:20] VITALS: BP 173/84
--- NOTE | 2024-03-26 16:22 | CM ---
Chart reviewed. Pt medically stable for d/c.
Met w/ pt bedside, agreeable to d/c
Spouse will transport home
IMM reviewed, copy in chart
No CM needs identified at this time
Plan: Home; no needs
--- NOTE | 2024-03-27 11:37 | PN.CDI ---
CDI
- -
CDI:
Physician Documentation Request
Admit Date: 03/24/24 19:23
Dear Doctor Do,
Patient admitted for food impaction.
Laboratory Tests
03/24/24 03/25/24
20:55 04:20
Sodium 131 L 134 L
Based on the above, could you clarify in the progress notes, the appropriate diagnosis, if significant, that supports the above abnormalities and additional evaluation, monitoring and/or treatment rendered:
Hyponatremia
Abnormal lab value insignificant
Other
Use of terms such as suspected, likely, concern for, or probable (associated with a specific diagnosis that is being evaluated, monitored, or treated as if it exists) are acceptable and can be coded in the inpatient setting, when documented at the
time of discharge.
Thank you,
Odilia Fisher RN, BSN
CDI Specialist
Available via [employer] text
Please use your independent medical judgment in providing your response.
== END 2024-03-26 17:07 | disposition home or self-care (01) | DRG 393 ==
LOC: 4 WEST ACU 19:23
PROVIDERS: Hospitalist; Internal Medicine; Nurse Practitioner Primary Care; ATTENDING PHYSICIAN Family Medicine; CONSULT PHYSICIAN Internal Medicine Critical Care Medicine; FAMILY PHYSICIAN Internal Medicine
PROC: 0W3P8ZZ Control Bleeding in Gastrointestinal Tract, Via Natural or Artificial Opening Endoscopic (ICD-10-PCS; 2024-03-24)
PROC: 0BH17EZ Insertion of Endotracheal Airway into Trachea, Via Natural or Artificial Opening (ICD-10-PCS; 2024-03-24)
PROC: 5A1935Z Respiratory Ventilation, Less than 24 Consecutive Hours (ICD-10-PCS; 2024-03-24)
PROC: 0DC58ZZ Extirpation of Matter from Esophagus, Via Natural or Artificial Opening Endoscopic (ICD-10-PCS; 2024-03-25)
DX: T18.120A Food in esophagus causing compression of trachea, initial encounter (principal); J69.0 Pneumonitis due to inhalation of food and vomit; K22.11 Ulcer of esophagus with bleeding; Z99.11 Dependence on respirator [ventilator] status; E87.1 Hypo-osmolality and hyponatremia; K22.2 Esophageal obstruction; I25.10 Atherosclerotic heart disease of native coronary artery without angina pectoris; Z95.1 Presence of aortocoronary bypass graft; W44.F3XA Food entering into or through a natural orifice, initial encounter; K21.00 Gastro-esophageal reflux disease with esophagitis, without bleeding; N40.0 Benign prostatic hyperplasia without lower urinary tract symptoms; R13.10 Dysphagia, unspecified; D63.8 Anemia in other chronic diseases classified elsewhere; G47.33 Obstructive sleep apnea (adult) (pediatric); Z87.891 Personal history of nicotine dependence; Z79.899 Other long term (current) drug therapy; Z96.651 Presence of right artificial knee joint
CPT/HCPCS: 88305; 36600; 71045; 80048; 81003; 81015; 82805; 83735; 84478; 85027; 87070; 87205; 93005; 94002; 94003; J1610

== ENCOUNTER → 2024-05-08 08:47 | Outpatient (REF) | payer MEDICARE, OTHER, SELFPAY | LOC: RAD 08:47 | PROVIDERS: ATTENDING PHYSICIAN Internal Medicine Cardiovascular Disease; FAMILY PHYSICIAN Internal Medicine | DX: I65.22 Occlusion and stenosis of left carotid artery (principal) | CPT/HCPCS: 93880 ==

== ENCOUNTER → 2024-06-02 09:01 | Outpatient (REF) | payer MEDICARE, OTHER, SELFPAY | LOC: RAD 09:01 | PROVIDERS: ATTENDING PHYSICIAN Physician Assistant; FAMILY PHYSICIAN Internal Medicine | DX: I71.20 Thoracic aortic aneurysm, without rupture, unspecified (principal); I25.10 Atherosclerotic heart disease of native coronary artery without angina pectoris; I10 Essential (primary) hypertension | CPT/HCPCS: 71275; 74174; Q9967 ==

== ENCOUNTER 2024-07-03 06:08 | Day surgery (SDC) | payer MEDICARE, OTHER, SELFPAY ==
[2024-06-26 12:46] VITALS: BMI 23.9
[2024-07-03] VITALS (8 sets, daily range): BP systolic 117–162; BP diastolic 64–83; BMI 23.9
[2024-07-03] MEDS: NORMOSOL-R/PLASMALYTE-A 1000 IV (06:44)
== END 2024-07-03 11:05 | disposition home or self-care (01) ==
LOC: SDS 06:08
PROVIDERS: ATTENDING PHYSICIAN Specialist
DX: N43.3 Hydrocele, unspecified (principal)
CPT/HCPCS: 55040

== ENCOUNTER → 2024-08-10 11:07 | Outpatient (REF) | payer MEDICARE, OTHER, SELFPAY | LOC: PAVMRI 11:07 | PROVIDERS: ATTENDING PHYSICIAN Internal Medicine | DX: M54.50 Low back pain, unspecified (principal); R52 Pain, unspecified; M54.59 Other low back pain | CPT/HCPCS: 72148 ==

== ENCOUNTER → 2024-11-12 07:12 | Outpatient (REF) | payer MEDICARE, OTHER, SELFPAY ==
[2024-11-12 08:27] LABS: Hematocrit 37.8 % (39.0-52.0); Hemoglobin 13.3 g/dL (13.0-18.0); Mean Corp Hgb Conc. 35.2 g/dL (33.0-37.0); Mean Corpuscular Volume 98.2 fL (80.0-94.0); Nucleated Red Blood Cells % 0 % (-); Platelet Count 166 10^3/uL (130-400); Red Cell Dist. Width 13.7 % (11.5-14.5)
[2024-11-12 09:53] LABS: ALT (SGPT) 54 U/L (0-50); AST (SGOT) 64 U/L (17-59); Albumin 4.1 g/dl (3.5-5.0); Alkaline Phosphatase 42 U/L (38-126); Blood Urea Nitrogen 17 mg/dl (9-20); Calcium 9.0 mg/dl (8.4-10.2); Carbon Dioxide 26 mmol/L (22-30); Chloride 100 mmol/L (98-107); Glucose 108 mg/dl (70-99); Potassium 4.3 mmol/L (3.5-5.1); Sodium 131 mmol/L (135-145); Total Protein 6.1 g/dl (6.3-8.2); eGFR > 60.00
[2024-11-12 10:21] LABS: TSH 7.11 uIU/ml (0.47-4.68)
== END ==
LOC: REG 07:12
PROVIDERS: ATTENDING PHYSICIAN Internal Medicine
DX: R41.3 Other amnesia (principal); I10 Essential (primary) hypertension; I35.0 Nonrheumatic aortic (valve) stenosis
CPT/HCPCS: 36415; 70450; 80053; 84443; 85025

== ENCOUNTER → 2024-12-29 10:56 | Outpatient (REF) | payer MEDICARE, OTHER, SELFPAY | LOC: RCS 10:56 | PROVIDERS: ATTENDING PHYSICIAN Internal Medicine Cardiovascular Disease; FAMILY PHYSICIAN Internal Medicine | DX: Z95.2 Presence of prosthetic heart valve (principal) | CPT/HCPCS: 93306 ==

== ENCOUNTER → 2025-01-21 08:51 | Outpatient (REF) | payer MEDICARE, OTHER, SELFPAY ==
[2025-01-21 12:35] LABS: Ferritin 38.2 ng/ml (17.9-464.0)
[2025-01-21 13:06] LABS: Folate 15.1 ng/ml (2.76-20); Vitamin B12 936 pg/ml (239-931)
[2025-01-21 14:57] LABS: Hepatitis C Antibody Negative (Negative)
[2025-01-22 12:15] LABS: Rheumatoid Agglutinin Less Than 10 IU (<10 IU)
[2025-01-22 12:25] LABS: Lyme Antibody Screen, EIA Negative (Negative)
[2025-01-23 08:07] LABS: ANA, IgG Reflex to HEp-2 None Detected (None Detected)
[2025-01-23 10:54] LABS: SSA 52 (Ro)(ENA) Ab, IgG 3 AU/mL (0-40); SSA 60 (Ro)(ENA) Ab, IgG 0 AU/mL (0-40); SSB (La)(ENA) Ab, IgG 2 AU/mL (0-40)
== END ==
LOC: REG 08:51
PROVIDERS: ATTENDING PHYSICIAN Psychiatry & Neurology Neurology; FAMILY PHYSICIAN Internal Medicine
DX: R41.3 Other amnesia (principal); Z79.899 Other long term (current) drug therapy
CPT/HCPCS: 36415; 82607; 82728; 82746; 84443; 86038; 86235; 86430; 86618; 86692; 86705; 86803

== ENCOUNTER → 2025-02-06 10:33 | Outpatient (REF) | payer MEDICARE, OTHER, SELFPAY | LOC: DHVS 10:33 | PROVIDERS: ATTENDING PHYSICIAN Internal Medicine | DX: I77.9 Disorder of arteries and arterioles, unspecified (principal) | CPT/HCPCS: 93925 ==